=== PATIENT | female | born 1945 | race Caucasian/White ===

== ENCOUNTER 2024-01-13 12:18 | Emergency (ER) | payer MEDICARE, OTHER ==
[~2024-01-13] VITALS: Ht 157.5 cm; Wt 69.0 kg
[2024-01-13] MEDS ORDERED: METH-653 MT (14:56)
[2024-01-13] MEDS ORDERED: LIDO700A15 TP (14:56)
[2024-01-13 15:08] VITALS: TEMP 98.3
[2024-01-13] MEDS: ACETAMINOPHEN 325MG TABLET PO ONE (15:08)
[2024-01-13] MEDS: METHOCARBAMOL 500MG TABLET PO ONE (15:16)
[2024-01-13 16:00] VITALS: BP 122/70; PULSE 80; RESP 15; O2SAT 99
== END 2024-01-13 16:02 | disposition home or self-care (01) ==
LOC: ER 12:18
DX: M54.9 Dorsalgia, unspecified (principal); Z13.9 Encounter for screening, unspecified
CPT/HCPCS: 99283